=== PATIENT | male | born 2000 | race Hispanic/Latino ===

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

== ENCOUNTER 2022-07-29 21:56 | Emergency (ER) | payer OTHER ==
--- NOTE | 2022-07-29 22:26 | EDPHYS ---
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 Patient states his discomfort is a 1/10 on his left lateral lower leg.. Historical: - Allergies: 22:29 No Known Allergies; os - Immunization history:: Adult Immunizations up to date. - Social history:: Smoking status: Patient denies any tobacco usage or history of. ROS: 22:25 Constitutional: Negative for fever, and chills. Neck: Negative for injury, pain, and ms3 swelling, Cardiovascular: Negative for chest pain, and palpitations. Respiratory: Negative for shortness of breath, cough, wheezing, and pleuritic chest pain, Abdomen/GI: Negative for abdominal pain, nausea, vomiting, diarrhea, and constipation. 22:25 Skin: Positive for Dog bite. 22:25 All other systems are negative. Exam: 22:25 Constitutional: This is a well developed, well nourished patient who is awake, alert, ms3 and in no acute distress. Head/Face: Normocephalic, atraumatic. Chest/axilla: Normal chest wall appearance and motion. Nontender with no deformity. Cardiovascular: Regular rate and rhythm with a normal S1 and S2. No gallops, murmurs, or rubs. Normal PMI, no JVD. No pulse deficits. Respiratory: Lungs have equal breath sounds bilaterally, clear to auscultation and percussion. No rales, rhonchi or wheezes noted. No increased work of breathing, no retractions or nasal flaring. Abdomen/GI: Soft, non-tender, with normal bowel sounds. No distension or tympany. No guarding or rebound. No evidence of tenderness throughout. 22:25 Skin: injury, abrasion(s), very small abrasion noted, of the Left lateral lower leg. Vital Signs: 22:25 BP 97 / 62; Pulse 84; Resp 16; Temp 98.2; Pulse Ox 98% on R/A; Weight 69.4 kg; os MDM: 22:24 Patient medically screened. ms3 22:25 Data reviewed: vital signs, nurses notes, and as a result, I will discharge patient. I ms3 considered the following discharge prescriptions or medication management in the emergency department Patient given prescription for Augmentin. Counseling: I had a detailed discussion with the patient and/or guardian regarding: the historical points, exam findings, and any diagnostic results supporting the discharge/admit diagnosis, the need for outpatient follow up, to return to the emergency department if symptoms worsen or persist or if there are any questions or concerns that arise at home. Special discussion: I discussed with the patient/guardian in detail that at this point there is no indication for admission to the hospital. It is understood, however, that if the symptoms persist or worsen the patient needs to return immediately for re-evaluation. Administered Medications: No medications were administered Disposition Summary: 07/29/22 22:25 Discharge Ordered Location: Home ms3 Condition: Stable ms3 Diagnosis - Bitten by dog ms3 Followup: ms3 - With: Sean Jacskon MD - When: 2 - 3 days - Reason: Recheck today's complaints Discharge Instructions: - Discharge Summary Sheet ms3 - Animal Bite, Adult, [id number] ms3 Forms: - Medication Reconciliation Form ms3 - Thank You Letter ms3 - Antibiotic Education ms3 - Prescription Opioid Use ms3 Prescriptions: - Augmentin 875-125 mg Oral Tablet - take 1 tablet by ORAL route every 12 hours for 6 days; 20 tablet; Refills: 0, ms3 Product Selection Permitted Signatures: Crow Cunha DO DO ms3 Marlen Fay, RN RN os Corrections: (The following items were deleted from the chart) 22:29 22:29 PMHx: SVT; os os 22:29 22:29 PMHx: WPW; os os
--- NOTE | 2022-07-29 22:38 | ER ---
Nurse's Notes [facility] Name: Simon Kee Age: 22 yrs Sex: Male : 2000 Arrival Date: 07/29/2022 Time: 21:56 Bed IW2 Private MD: Diagnosis: Bitten by dog Presentation: 07/29 22:25 Chief complaint: Patient states: I got scratched by a lap dog earlier around 2049. os Coronavirus screen: Vaccine status: Patient reports receiving the 2nd dose of the covid vaccine. 1 year ago. Ebola Screen: Patient negative for fever greater than or equal to 101.5 degrees Fahrenheit, and additional compatible Ebola Virus Disease symptoms. Initial Sepsis Screen: Does the patient meet any 2 criteria? No. Patient's initial sepsis screen is negative. Does the patient have a suspected source of infection? No. Patient's initial sepsis screen is negative. Risk Assessment: Do you want to hurt yourself or someone else? Patient reports no desire to harm self or others. Onset of symptoms was July 29, 2022. 22:25 Method Of Arrival: Ambulatory os 22:25 Acuity: CARLOS ENRIQUE 5 os Triage Assessment: 22:34 Bite description: bite sustained to back of left leg is superficial, by a dog, animal os information: vaccination(s) is current. General: Appears in no apparent distress. Behavior is calm, cooperative, appropriate for age. Pain: Denies pain. Historical: - Allergies: 22:29 No Known Allergies; os - Immunization history:: Adult Immunizations up to date. - Social history:: Smoking status: Patient denies any tobacco usage or history of. Screenin:35 [facility] ED Fall Risk Assessment (Adult) History of falling in the last 3 months, os including since admission No falls in past 3 months (0 pts). Abuse screen: Denies threats or abuse. Nutritional screening: No deficits noted. Tuberculosis screening: No symptoms or risk factors identified. Assessment: 22:36 Derm: Skin is intact, Skin is. os Vital Signs: 22:25 BP 97 / 62; Pulse 84; Resp 16; Temp 98.2; Pulse Ox 98% on R/A; Weight 69.4 kg; os ED Course: 21:57 Patient arrived in ED. jj6 22:07 Crow Cunha DO is Attending Physician. ms3 22:25 Sean Jackson MD is Referral Physician. ms3 22:29 Triage completed. os 22:35 Arm band placed on. os 22:35 No provider procedures requiring assistance completed. os 22:36 Patient has correct armband on for positive identification. os 22:36 Patient did not have IV access during this emergency room visit. os Administered Medications: No medications were administered Medication: 22:36 VIS not applicable for this client. os Outcome: 22:25 Discharge ordered by . ms3 22:36 Discharged to home ambulatory. os 22:36 Condition: good 22:36 Condition: good 22:36 Discharge instructions given to patient, family, Instructed on discharge instructions, follow up and referral plans. medication usage, Demonstrated understanding of instructions, follow-up care, medications, Prescriptions given X 1. 22:37 Patient left the ED. os Signatures: Crow Cunha, DO ms3 LeathaJaimie jj6 Marlen Fay, RN RN os Corrections: (The following items were deleted from the chart) 22:29 22:29 PMHx: SVT; os os 22:29 22:29 PMHx: WPW; os os
[2022-07-29 22:45] VITALS: BP 97/62; TEMP 98.2; O2SAT 98
== END 2022-07-29 22:37 | disposition home or self-care (01) ==
LOC: ER 21:56
DX: S80.812A Abrasion, left lower leg, initial encounter (principal); W54.0XXA Bitten by dog, initial encounter
CPT/HCPCS: 99283

== ENCOUNTER 2023-07-16 22:02 | Emergency (ER) | payer OTHER ==
[2023-07-16] MEDS ORDERED: TDAP (DIPHTH,PERTUSS(ACELL),TET VAC) 0.5 ML VIAL IMVAC ONE (22:49)
[2023-07-16] MEDS ORDERED: AMOX/K CLAV 875 MG TAB ONE (22:49)
--- NOTE | 2023-07-16 23:21 | ER ---
Nurse's Notes [facility] Name: Simon Kee Age: 23 yrs Sex: Male : 2000 Arrival Date: 07/16/2023 Time: 22:02 Bed Treatment Private MD: Diagnosis: Bitten by dog Presentation: 07/15 22:15 Chief complaint: Patient states: bit on left hand by own dog. pain to last two fingers lg3 on left hand. [employer] notified at time of triage. Coronavirus screen: Client denies travel out of the [place] in the last 14 days. At this time, the client does not indicate any symptoms associated with coronavirus-19. Ebola Screen: No symptoms or risks identified at this time. Initial Sepsis Screen: Does the patient meet any 2 criteria? No. Patient's initial sepsis screen is negative. Does the patient have a suspected source of infection? No. Patient's initial sepsis screen is negative. Risk Assessment: Do you want to hurt yourself or someone else? Patient reports no desire to harm self or others. Onset of symptoms was July 16, 2023. 22:15 Method Of Arrival: Ambulatory lg3 22:15 Acuity: CARLOS ENRIQUE 4 lg3 Triage Assessment: 22:19 Bite description: bite sustained to left hand by a dog, animal information: lg3 vaccination(s) is current. General: Appears in no apparent distress. comfortable, Behavior is calm, cooperative. Pain: Complains of pain in left hand. EENT: No deficits noted. No signs and/or symptoms were reported regarding the EENT system. Neuro: No deficits noted. [place] Agitation-Sedation Scale (RASS): 0 - Alert and Calm Level of Consciousness is awake, alert, obeys commands, Oriented to person, place, time, situation. Cardiovascular: No deficits noted. Denies chest pain, shortness of breath, Capillary refill < 3 seconds Clubbing of nail beds is absent JVD is absent Patient's skin is warm and dry. Respiratory: No deficits noted. Airway is patent Respiratory effort is even, unlabored, Respiratory pattern is regular, symmetrical. GI: No deficits noted. No signs and/or symptoms were reported involving the gastrointestinal system. : No deficits noted. No signs and/or symptoms were reported regarding the genitourinary system. Derm: Skin is intact, is healthy with good turgor, Skin is dry, Skin is normal, Skin temperature is warm Wound noted left hand. Musculoskeletal: No deficits noted. No signs and/or symptoms reported regarding the musculoskeletal system. Circulation, motion, and sensation intact. Range of motion: intact in all extremities. Historical: - Allergies: 22:19 No Known Allergies; lg3 - Home Meds: 22:19 Fluoxetine Oral [Active]; Vyvanse oral [Active]; Trazodone Oral [Active]; lg3 - PMHx: 22:19 Anxiety; Depressive disorder; ADHD; lg3 - PSHx: 22:19 cardiac ablasian; lg3 - Immunization history:: Adult Immunizations up to date, Last tetanus immunization: < 5 years ago. - Infectious Disease History:: Denies. - Social history:: Smoking status: Patient denies any tobacco usage or history of. Patient uses alcohol, only on a social basis. Patient/guardian denies using street drugs. Screenin:23 [facility] ED Fall Risk Assessment (Adult) History of falling in the last 3 months, lg3 including since admission No falls in past 3 months (0 pts) Confusion or Disorientation No (0 pts) Intoxicated or Sedated No (0 pts) Impaired Gait No (0 pts) Mobility Assist Device Used No (0 pt) Altered Elimination No (0 pt) Score/Fall Risk Level 0 - 2 = Low Risk Oriented to surroundings, Maintained a safe environment, Educated pt \T\ family on fall prevention, incl call for assistance when getting out of bed, Assessed \T\ reinforced patient's understanding of fall precautions. Abuse screen: Denies threats or abuse. Denies injuries from another. Nutritional screening: No deficits noted. Tuberculosis screening: No symptoms or risk factors identified. Assessment: 22:23 General: see triage assessment. lg3 Vital Signs: 22:15 BP 125 / 69; Pulse 83; Resp 17 S; Temp 98.1(TE); Pulse Ox 100% on R/A; Weight 77.11 kg lg3 (R); Height 5 ft. 10 in. (R); 22:15 Body Mass Index 24.39 (77.11 kg, 177.8 cm) lg3 ED Course: 22:11 Patient arrived in ED. jj6 22:11 Lizeth Hilario [facility]-C [facility]. kb 22:11 Dominguez Wyatt MD is Attending Physician. kb 22:18 Police notified at 22:18 Of dog bite. ty 22:19 Triage completed. lg3 22:19 Arm band placed on right wrist. lg3 22:23 Patient has correct armband on for positive identification. lg3 22:43 Marleny Brantley, RN is Primary Nurse. cm10 22:44 Hand Left 3 View XRAY In Process Unspecified. EDMS 23:06 Wound care: to Dog bite located on palmar aspect of middle phalanx of left little cm10 finger and palmar aspect of proximal phalanx of left middle finger and left hand was cleaned with Hibiclens, Patient tolerated well. 23:35 No provider procedures requiring assistance completed. Patient did not have IV access cm10 during this emergency room visit. Wound care: was dressed with Neosporin, Kerlix. 23:36 Provided Education on: Wound care. cm10 Administered Medications: 22:52 Drug: Amoxicillin-Clavulanate PO 875 mg PO once Route: PO; cm10 23:06 Follow up: Response: No adverse reaction cm10 22:52 Drug: Boostrix Tdap IM 0.5 ml IM once; as a single dose Route: IM; Site: left deltoid; cm10 23:06 Follow up: Response: (VIS) Vaccine information sheet provided today. Questions and/or cm10 concerns addressed. VIS edition date: Sep 10, 2020.; No adverse reaction Medication: 22:53 Vaccine Information Statement (VIS) provided today. Questions and/or concerns cm10 addressed. VIS edition date: September 10, 2020. Outcome: 23:20 Discharge ordered by . kb 23:36 Discharged to home ambulatory, with family, cm10 23:36 Condition: good 23:36 Discharge instructions given to patient, Instructed on discharge instructions, follow up and referral plans. medication usage, Demonstrated understanding of instructions, follow-up care, medications, Prescriptions given X 1, 23:36 Patient left the ED. cm10 Signatures: Dispatcher [employer] EDMS Lizeth Hilario, TRUST OPERATIONS ASSISTANT-C TRUST OPERATIONS ASSISTANT-Sofia Salazar RN RN lg3 Jaimie Zhang jj6 Marleny Brantley RN RN cm10 Tito Castillo ty Corrections: (The following items were deleted from the chart) 22:21 22:19 PD Notified ty ty 22:15 Chief complaint: Patient states: bit on left hand by own dog. pain to last two lg3 fingers on left hand lg3
--- NOTE | 2023-07-16 23:21 | EDPHYS ---
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 kb States he was trying to put leash on dog and it bit him. Denies any other injuries. Historical: - Allergies: 22:19 No Known Allergies; lg3 - Home Meds: 22:19 Fluoxetine Oral [Active]; Vyvanse oral [Active]; Trazodone Oral [Active]; lg3 - PMHx: 22:19 Anxiety; Depressive disorder; ADHD; lg3 - PSHx: 22:19 cardiac ablasian; lg3 - Immunization history:: Adult Immunizations up to date, Last tetanus immunization: < 5 years ago. - Infectious Disease History:: Denies. - Social history:: Smoking status: Patient denies any tobacco usage or history of. Patient uses alcohol, only on a social basis. Patient/guardian denies using street drugs. ROS: 22:13 Constitutional: As per HPI kb Exam: 22:42 Constitutional: This is a well developed, well nourished patient who is awake, alert, kb and in no acute distress. Head/Face: Normocephalic, atraumatic. ENT: Moist Mucous membranes Cardiovascular: Regular rate Respiratory: Respirations even and unlabored. No increased work of breathing. Talking in full sentences Neuro: Awake and alert, GCS 15, oriented to person, place, time, and situation. Moves all extremities. Normal gait. 22:42 Musculoskeletal/extremity: Extremities: grossly normal except: noted in the palmar aspect of proximal phalanx of left middle finger: abrasion, decreased ROM, pain, noted in the palmar aspect of middle phalanx of left little finger: abrasion, ROM: limited active range of motion due to pain, Circulation is intact in all extremities. Sensation intact. Vital Signs: 22:15 BP 125 / 69; Pulse 83; Resp 17 S; Temp 98.1(TE); Pulse Ox 100% on R/A; Weight 77.11 kg lg3 (R); Height 5 ft. 10 in. (R); 22:15 Body Mass Index 24.39 (77.11 kg, 177.8 cm) lg3 MDM: 22:11 Patient medically screened. kb 22:42 ED course: [employer] reports #[id number]. kb 22:43 Data reviewed: vital signs, nurses notes. Historians other than the Patient: Parent: gui mother. 23:20 Independent interpretation of the following test(s) in the Emergency Department X-Ray: kb My interpretation is no fracture. Counseling: I had a detailed discussion with the patient and/or guardian regarding the historical points, exam findings, and any diagnostic results supporting the discharge/admit diagnosis, radiology results, the need for outpatient follow up, a family practitioner, to return to the emergency department if symptoms worsen or persist or if there are any questions or concerns that arise at home. 07/15 22:16 Order name: Hand Left 3 View XRAY kb Administered Medications: 22:52 Drug: Amoxicillin-Clavulanate PO 875 mg PO once Route: PO; cm10 23:06 Follow up: Response: No adverse reaction cm10 22:52 Drug: Boostrix Tdap IM 0.5 ml IM once; as a single dose Route: IM; Site: left deltoid; cm10 23:06 Follow up: Response: (VIS) Vaccine information sheet provided today. Questions and/or cm10 concerns addressed. VIS edition date: Sep 10, 2020.; No adverse reaction Disposition: 07/16 03:17 Co-signature as Attending Physician, Dominguez Wyatt MD I agree with the assessment sp4 and plan of care. I reviewed the patient's care provided by the Advanced Practice Provider and agree with the diagnosis and treatment plan. Disposition Summary: 07/16/23 23:20 Discharge Ordered Notes: Location: Home kb Condition: Stable kb Diagnosis - Bitten by dog kb Followup: kb - With: Emergency Department - When: As needed - Reason: Worsening of condition Followup: kb - With: Private Physician - When: 2 - 3 days - Reason: Recheck today's complaints, Continuance of care, Re-evaluation by your physician Discharge Instructions: - Discharge Summary Sheet kb - Animal Bite, Adult, [id number] kb Forms: - Medication Reconciliation Form kb - Antibiotic Education kb - Prescription Opioid Use kb - Patient Portal Instructions kb - Leadership Thank You Letter kb Prescriptions: - Augmentin 875-125 mg Oral Tablet - take 1 tablet ORAL route every 12 hours for 10 days; 20 tablet; Refills: 0, kb Product Selection Permitted Signatures: Dispatcher [employer] EDMS Lizeth Hilario FNP-C FNP-Sofia Salazar, RN RN lg3 Dominguez Wyatt MD MD sp4 Marleny Brantley RN RN cm10 Corrections: (The following items were deleted from the chart) 07/15 22:17 22:17 Hand Left 3 View+RAD.RAD.BRZ ordered. EDNM EDMS
[2023-07-17 00:35] VITALS: BP 125/69; TEMP 98.1; O2SAT 100
--- NOTE | 2023-07-17 13:21 | RAD REPORT ---
EXAM DESCRIPTION: RAD - Hand Left 3 View - 07/16/2023 10:42 pm CLINICAL HISTORY: The patient is 23 years old and is Male; PAIN TECHNIQUE: Frontal, lateral and oblique views of the left hand. COMPARISON: No relevant prior studies available. FINDINGS: BONES/JOINTS: Unremarkable. No acute fracture. No dislocation. SOFT TISSUES: Unremarkable. No radiopaque foreign body. IMPRESSION: Normal left hand radiographs. Electronically signed by: Emi Wilburn MD 07/16/2023 11:20 PM CDT RP Due to temporary technical issues with the PACS/Fluency reporting system, reports are being signed by the in house radiologist without review as a courtesy to ensure prompt reporting. The interpreting r adiologist is fully responsible for the content of the report.
== END 2023-07-16 23:36 | disposition home or self-care (01) ==
LOC: ER 22:02
DX: S60.512A Abrasion of left hand, initial encounter (principal); W54.0XXA Bitten by dog, initial encounter
CPT/HCPCS: 96372; 99284

== ENCOUNTER 2023-08-08 00:52 | Emergency (ER) | payer OTHER ==
[2023-08-08] MEDS ORDERED: THIAMINE 200 MG/2 ML INJ ONE (01:22)
[2023-08-08] MEDS ORDERED: ONDANSETRON 4 MG/2 ML VIAL ONE (01:22)
[2023-08-08] MEDS ORDERED: MULTIVITAMINS 10 ML VIAL (INJ) IV ONE (01:23)
[2023-08-08] MEDS ORDERED: FOLIC ACID 5 MG/ML VIAL ONE (01:23)
[2023-08-08] MEDS ORDERED: NA CHLORIDE 0.9% 2,000 ML ONE (01:24)
[2023-08-08 01:30] LABS: Absolute Eosinophils 0.2 K/uL (0-0.5); Absolute Lymphocytes (CBC) 1.4 K/uL (0.7-4.9); Absolute Monocytes 0.5 K/uL (0.1-1.3); Absolute Neutrophil 3.2 K/uL (1.8-8.0); Basophils % 0.6 % (0-1.3); Eosinophils % 4.5 % (0-4.4); Hematocrit 41.7 % (39.6-49.0); Hemoglobin 13.9 g/dL (13.6-17.9); Lymphocytes % 26.6 % (15.3-44.8); MCH 30.7 pg (27.0-35.0); MCHC 33.4 g/dL (32.0-36.0); MCV 91.9 fL (80-100); MPV 9.4 fL (7.6-11.3); Monocytes % 9.4 % (3.3-12.3); Neutrophils % 58.9 % (41.7-73.7); Nucleated Red Blood Cells % 0.1 % (0-0); Platelets 186 thou/uL (152-406); RBC Red Blood Cell Count 4.54 M/uL (4.33-5.43); Red Cell Distribution Width 13.9 % (12.1-15.2)
[2023-08-08 01:34] LABS: PT Prothrombin Time 12.2 SECONDS (9.4-12.5); Protime INR 1.11
[2023-08-08 02:14] LABS: ALT/SGPT 39 U/L (16-61); AST/SGOT 28 U/L (15-37); Albumin 3.8 g/dL (3.4-5.0); Albumin/Globulin Ratio 1.2 (1.1-1.8); Alkaline Phosphatase 85 U/L (45-117); Anion Gap 8.4 mEq/L (5.0-15.0); BUN Blood Urea Nitrogen 20 mg/dL (7-18); Bicarbonate 28 mEq/L (21-32); Bilirubin Total 0.3 mg/dL (0.2-1.0); Globulin 3.2 g/dL (2.3-3.5); Glomerular Filtration Rate 124 ml/min (=/>90); Glucose Level 79 mg/dL (74-106); Potassium 3.4 mEq/L (3.5-5.1); Sodium Level 141 mEq/L (136-145)
[2023-08-08 02:16] LABS: Bilirubin Direct < 0.2 mg/dL (0-0.2); Bilirubin Indirect, Calculated 0.1 mg/dL (0.2-0.8)
[2023-08-08 02:18] LABS: Specific Gravity 1.006 (1.005-1.030); Sqamous Epithelial None Seen /HPF (None Seen); Urine Bacteria None Seen /HPF (<20); Urine Bilirubin NEGATIVE (Negative); Urine Blood Negative (Negative); Urine Clarity Clear (Clear); Urine Color Colorless (Yellow); Urine Culture Reflex Order NOT NEEDED; Urine Glucose NEGATIVE (Negative); Urine Ketones NEGATIVE (Negative); Urine Microscopic Reflex YN ORDER UMIC; Urine Nitrite NEGATIVE (Negative); Urine Protein NEGATIVE (Negative); Urine RBC None Seen /HPF (None Seen); Urine Urobilinogen Normal (Normal); Urine WBC <5 /HPF (<5)
[2023-08-08 02:46] LABS: Barbiturates NEGATIVE (NEGATIVE); Benzodiazepines NEGATIVE (NEGATIVE); Cocaine NEGATIVE (NEGATIVE); METHAMPHETAM POSITIVE (NEGATIVE); Methadone NEGATIVE (NEGATIVE); Opiates NEGATIVE (NEGATIVE); Phencyclidine NEGATIVE (NEGATIVE); THC Cannibis NEGATIVE (NEGATIVE)
--- NOTE | 2023-08-08 03:17 | ER ---
Nurse's Notes [facility] Name: Simon Kee Age: 23 yrs Sex: Male : 2000 Arrival Date: 08/08/2023 Time: 00:52 Bed 4 Private MD: Diagnosis: Alcohol use, unspecified with intoxication Presentation: 08/07 00:52 Chief complaint: EMS states: mother and father called us because they think their son bm8 may have alcohol poisining. Coronavirus screen: Vaccine status: Patient reports receiving the 2nd dose of the covid vaccine. Ebola Screen: Patient negative for fever greater than or equal to 101.5 degrees Fahrenheit, and additional compatible Ebola Virus Disease symptoms Patient denies exposure to infectious person. Patient denies travel to an Ebola-affected area in the 21 days before illness onset. No symptoms or risks identified at this time. Initial Sepsis Screen: Does the patient meet any 2 criteria? No. Patient's initial sepsis screen is negative. Does the patient have a suspected source of infection? No. Patient's initial sepsis screen is negative. Risk Assessment: Do you want to hurt yourself or someone else? Patient reports no desire to harm self or others. Onset of symptoms is unknown. 00:52 Method Of Arrival: EMS: [facility] bm8 00:52 Acuity: CARLOS ENRIQUE 3 bm8 01:10 Care prior to arrival: Medication(s) given: Normal saline infusion, 1000 mL, IV bm8 initiated. 18 GA, in the right antecubital area. Triage Assessment: 01:10 General: Appears distressed, comfortable, well groomed, Behavior is cooperative, bm8 crying. Pain: Denies pain. EENT: No deficits noted. No signs and/or symptoms were reported regarding the EENT system. Neuro: No deficits noted. Level of Consciousness is awake, alert, obeys commands, Oriented to person, place, time, situation, Appropriate for age Public Health Registrar are equal bilaterally Moves all extremities. Full function. Cardiovascular: Denies chest pain, Capillary refill < 3 seconds Patient's skin is warm and dry. Respiratory: Airway is patent Respiratory effort is even, unlabored, Respiratory pattern is regular, symmetrical, Breath sounds are clear bilaterally. GI: No signs and/or symptoms were reported involving the gastrointestinal system. : No signs and/or symptoms were reported regarding the genitourinary system. Derm: No signs and/or symptoms reported regarding the dermatologic system. Musculoskeletal: No signs and/or symptoms reported regarding the musculoskeletal system. Historical: - Allergies: :09 No Known Allergies; bm8 - Home Meds: 01:09 Fluoxetine Oral [Active]; Trazodone Oral [Active]; Vyvanse oral [Active]; bm8 - PMHx: 01:10 adhd; Anxiety; depressive disorder; bm8 - PSHx: 01:09 cardiac ablasian; bm8 - Immunization history:: Adult Immunizations up to date. - Infectious Disease History:: Denies. - Social history:: Smoking status: Patient denies any tobacco usage or history of. Patient uses alcohol, but reports only rare drinking. patient/guardian reports recent binge of alcohol consumption. Patient/guardian denies using street drugs, IV drugs. - Family history:: not pertinent. Screenin:14 [facility] ED Fall Risk Assessment (Adult) History of falling in the last 3 months, bm8 including since admission No falls in past 3 months (0 pts) Confusion or Disorientation No (0 pts) Intoxicated or Sedated No (0 pts) Impaired Gait No (0 pts) Mobility Assist Device Used No (0 pt) Altered Elimination No (0 pt) Score/Fall Risk Level 0 - 2 = Low Risk Oriented to surroundings, Maintained a safe environment, Educated pt \T\ family on fall prevention, incl call for assistance when getting out of bed, Assessed \T\ reinforced patient's understanding of fall precautions. Abuse screen: Denies threats or abuse. Nutritional screening: No deficits noted. Tuberculosis screening: No symptoms or risk factors identified. Assessment: :14 Reassessment: see triage note. bm8 01:57 Reassessment: Patient appears in no apparent distress at this time. Patient and/or bm8 family updated on plan of care and expected duration. Pain level reassessed. Patient is alert, oriented x 3, equal unlabored respirations, skin warm/dry/pink. pt is resting with eyes closed breathing is even unlabored with mother at bedside. Pt is easily rousable, still denies pain. No N/V since arrival. General: Appears in no apparent distress. comfortable, Behavior is calm, cooperative, appropriate for age. Pain: Denies pain. Neuro: No deficits noted. Level of Consciousness is awake, alert, obeys commands, Oriented to person, place, time, situation, Appropriate for age. Cardiovascular: Denies chest pain, Capillary refill < 3 seconds Patient's skin is warm and dry. Respiratory: Airway is patent Trachea midline Respiratory effort is even, unlabored, Respiratory pattern is regular, symmetrical. GI: Patient currently denies nausea, vomiting. : No signs and/or symptoms were reported regarding the genitourinary system. EENT: No signs and/or symptoms were reported regarding the EENT system. Derm: No signs and/or symptoms reported regarding the dermatologic system. Musculoskeletal: No signs and/or symptoms reported regarding the musculoskeletal system. 03:33 Reassessment: Patient appears in no apparent distress at this time. Patient and/or bm8 family updated on plan of care and expected duration. Pain level reassessed. Patient is alert, oriented x 3, equal unlabored respirations, skin warm/dry/pink. pt is eating and ready to go home with mother Patient states feeling better. Patient states symptoms have improved. Vital Signs: 00:52 BP 116 / 70; Pulse 81; Resp 17; Temp 97.7; Pulse Ox 99% on R/A; Weight 72.57 kg; Height bm8 5 ft. 10 in. ; Pain 0/10; 01:57 BP 119 / 74; Pulse 98; Resp 17; Temp 97.7; Pulse Ox 98% on R/A; Pain 0/10; bm8 03:33 BP 115 / 72; Pulse 87; Resp 17; Temp 98; Pulse Ox 100% ; Pain 0/10; bm8 00:52 Body Mass Index 22.96 (72.57 kg, 177.8 cm) bm8 00:52 Pain Scale: Adult bm8 01:57 Pain Scale: Adult bm8 03:33 Pain Scale: Adult bm8 [place] Coma Score: 01:14 Eye Response: spontaneous(4). Motor Response: obeys commands(6). Verbal Response: bm8 oriented(5). Total: 15. 01:57 Eye Response: spontaneous(4). Motor Response: obeys commands(6). Verbal Response: bm8 oriented(5). Total: 15. 03:33 Eye Response: spontaneous(4). Motor Response: obeys commands(6). Verbal Response: bm8 oriented(5). Total: 15. 21:55 Eye Response: spontaneous(4). Motor Response: localizes pain(5). Verbal Response: sp4 incomprehensible(2). Total: 11. ED Course: 01:06 Patient arrived in ED. bm8 01:07 Pedrito Kumar, RN is Primary Nurse. bm8 01:09 Triage completed. bm8 01:10 Dominguez Wyatt MD is Attending Physician. sp4 01:10 Arm band placed on right wrist. bm8 01:14 Patient has correct armband on for positive identification. Bed in low position. Call bm8 light in reach. Side rails up X2. Client placed on continuous cardiac and pulse oximetry monitoring. NIBP monitoring applied. case monitor on. Pulse ox on. NIBP on. Door closed. Noise minimized. Warm blanket given. Verbal reassurance given. 01:14 No provider procedures requiring assistance completed. Maintain EMS IV. Dressing bm8 intact. Good blood return noted. Site clean \T\ dry. Gauge \T\ site: 18g rac. 03:33 Provided Education on: post er care. bm8 03:33 IV discontinued, intact, bleeding controlled, No redness/swelling at site. Pressure bm8 dressing applied. Administered Medications: 01:34 Drug: Banana Bag - (Multivitamin IV 1 amp, NS 0.9% IV 1000 ml, Thiamine IV 100 mg, bm8 foLIC Acid IVPB 1 mg) IV at calculated rate once Route: IV; Rate: calculated rate; Site: right antecubital; 03:30 Follow up: Response: No adverse reaction; IV Status: Completed infusion; IV Intake: bm8 1000ml 01:34 Drug: NS 0.9% IV 1000 ml IV at 1 bolus Per protocol; 1000 mL bolus Route: IV; Rate: 1 bm8 bolus; Site: right antecubital; 03:29 Follow up: Response: No adverse reaction; IV Status: Completed infusion; IV Intake: bm8 1000ml 01:34 Drug: Ondansetron IVP 4 mg IVP once; over 2 minutes Route: IVP; Site: right antecubital;bm8 03:29 Follow up: Response: No adverse reaction bm8 Medication: 01:14 VIS not applicable for this client. bm8 Intake: 03:29 IV: 1000ml; Total: 1000ml. bm8 03:30 IV: 1000ml; Total: 2000ml. bm8 Outcome: 03:16 Discharge ordered by . spBradley 03:33 Discharged to home ambulatory, bm8 03:33 Condition: stable 03:33 Discharge instructions given to patient, family, Instructed on discharge instructions, follow up and referral plans. medication usage, safety practices, Demonstrated understanding of instructions, follow-up care, medications, 03:35 Patient left the ED. bm8 Signatures: Dominguez Wyatt MD MD sp4 Pedrito Kumar, RN RN bm8
--- NOTE | 2023-08-08 03:17 | EDPHYS ---
Physician Documentation [facility] Name: Simon Kee Age: 23 yrs Sex: Male : 2000 Arrival Date: 08/08/2023 Time: 00:52 Bed 4 Private MD: ED Physician Dominguez Wyatt HPI: 08/07 01:10 This 23 yrs old Male presents to ER via EMS with complaints of Intoxication . sp4 21:55 3-year-old male presents with acute alcohol intoxication. Patient reportedly sp4 takes amphetamine Vyvanse for ADHD. Was apparently at the bar earlier had a significant ingestion of alcohol. On arrival home patient was feeling unwell . His mother became worried and called EMS and patient was brought here by EMS .. Historical: - Allergies: 01:09 No Known Allergies; bm8 - Home Meds: 01:09 Fluoxetine Oral [Active]; Trazodone Oral [Active]; Vyvanse oral [Active]; bm8 - PMHx: 01:10 adhd; Anxiety; depressive disorder; bm8 - PSHx: 01:09 cardiac ablasian; bm8 - Immunization history:: Adult Immunizations up to date. - Infectious Disease History:: Denies. - Social history:: Smoking status: Patient denies any tobacco usage or history of. Patient uses alcohol, but reports only rare drinking. patient/guardian reports recent binge of alcohol consumption. Patient/guardian denies using street drugs, IV drugs. - Family history:: not pertinent. ROS: 21:55 Constitutional: For intoxication, other review of system is not available. sp4 21:55 All other systems are negative, Exam: 07:16 ECG was reviewed by the Attending Physician. EKG -EKG at 0 124 normal sinus rhythm rate sp4 83. 21:55 Constitutional: This is a well developed, well nourished patient who is awake, patient sp4 is heavily intoxicated, nonverbal at this time, poorly cooperative, not able to speak or provide HPI Head/Face: Normocephalic, atraumatic. Eyes: Pupils equal round and reactive to light, extra-ocular motions intact. Lids and lashes normal. Conjunctiva and sclera are not injected. Cornea within normal limits. Periorbital areas with no swelling, redness, or edema. ENT: Nares patent. No nasal discharge, no septal abnormalities noted. Tympanic membranes are normal and external auditory canals are clear. Oropharynx with no redness, swelling, or masses, exudates, or evidence of obstruction, uvula midline. Mucous membranes moist. Neck: Trachea midline, no thyromegaly or masses palpated, and no cervical lymphadenopathy. Supple, full range of motion without nuchal rigidity, or vertebral point tenderness. Chest/axilla: Normal chest wall appearance and motion. Nontender with no deformity. No lesions are appreciated. Cardiovascular: Regular rate and rhythm with a normal S1 and S2. No gallops, murmurs, or rubs. Normal PMI, no JVD. No pulse deficits. Respiratory: Lungs have equal breath sounds bilaterally, clear to auscultation and percussion. No rales, rhonchi or wheezes noted. No increased work of breathing, no retractions or nasal flaring. Abdomen/GI: Soft, with normal bowel sounds. No distension or tympany. No guarding or rebound. No evidence of tenderness throughout. Back: No spinal tenderness. No costovertebral tenderness. Skin: Warm, dry with normal turgor. Normal color with no rashes, no lesions, and no evidence of cellulitis. MS/ Extremity: Pulses equal, no cyanosis. Neurovascular intact. Full, normal range of motion. Neuro: Awake , intoxication limits exam, patient is moving all extremities, not able to speak at this time, no signs of lateralizing deficits Vital Signs: 00:52 BP 116 / 70; Pulse 81; Resp 17; Temp 97.7; Pulse Ox 99% on R/A; Weight 72.57 kg; Height bm8 5 ft. 10 in. ; Pain 0/10; 01:57 BP 119 / 74; Pulse 98; Resp 17; Temp 97.7; Pulse Ox 98% on R/A; Pain 0/10; bm8 03:33 BP 115 / 72; Pulse 87; Resp 17; Temp 98; Pulse Ox 100% ; Pain 0/10; bm8 00:52 Body Mass Index 22.96 (72.57 kg, 177.8 cm) bm8 00:52 Pain Scale: Adult bm8 01:57 Pain Scale: Adult bm8 03:33 Pain Scale: Adult bm8 Ellen Coma Score: 01:14 Eye Response: spontaneous(4). Motor Response: obeys commands(6). Verbal Response: bm8 oriented(5). Total: 15. 01:57 Eye Response: spontaneous(4). Motor Response: obeys commands(6). Verbal Response: bm8 oriented(5). Total: 15. 03:33 Eye Response: spontaneous(4). Motor Response: obeys commands(6). Verbal Response: bm8 oriented(5). Total: 15. 21:55 Eye Response: spontaneous(4). Motor Response: localizes pain(5). Verbal Response: sp4 incomprehensible(2). Total: 11. MDM: 01:12 Patient medically screened. sp4 21:55 Differential Diagnosis altered mental status, sepsis, flu, Intoxication. Data reviewed: sp4 vital signs, nurses notes, EMS record, old medical records, lab test result(s), electrolytes, hepatic panel, urine drug screen. Consideration of Admission/Observation Escalation of care including admission/observation considered. 22:00 ED course: Has sobered up throughout the ER stay. Patient is stable for discharge home sp4 at this time. 08/07 01:11 Order name: Acetaminophen; Complete Time: 03: sp4 08/07 01:11 Order name: Basic Metabolic Panel; Complete Time: 03: 4 08/07 01:11 Order name: CBC with Diff; Complete Time: 03: sp4 08/07 01:11 Order name: ETOH Level; Complete Time: 03: sp4 08/07 01:11 Order name: Hepatic Function; Complete Time: 03: sp4 08/07 01:11 Order name: PT-INR; Complete Time: 03: sp4 08/07 01:11 Order name: Ptt, Activated; Complete Time: 03: sp4 08/07 01:11 Order name: Salicylate; Complete Time: 03: 4 08/07 01:11 Order name: Urinalysis w/ reflexes; Complete Time: 03: sp4 08/07 01:11 Order name: Urine Drug Screen; Complete Time: 03: sp4 08/07 01:11 Order name: EKG; Complete Time: 01:11 sp4 08/07 01:11 Order name: EKG - Nurse/Tech; Complete Time: 01:30 sp4 08/07 01:11 Order name: IV Saline Lock; Complete Time: :30 sp4 08/07 01:11 Order name: Labs collected and sent; Complete Time: sp4 08/07 01:11 Order name: Suicide Screening (Franki); Complete Time: :35 sp4 EC:16 Rate is 83 beats/min. Rhythm is regular, Normal Sinus Rhythm. QRS Joshua is Normal. MN sp4 interval is normal. QRS interval is normal. QT interval is normal. No Q waves. T waves are Normal. No ST changes noted. Clinical impression: Normal ECG. Interpreted by me. Reviewed by me. Administered Medications: 01:34 Drug: Banana Bag - (Multivitamin IV 1 amp, NS 0.9% IV 1000 ml, Thiamine IV 100 mg, bm8 foLIC Acid IVPB 1 mg) IV at calculated rate once Route: IV; Rate: calculated rate; Site: right antecubital; 03:30 Follow up: Response: No adverse reaction; IV Status: Completed infusion; IV Intake: bm8 1000ml 01:34 Drug: NS 0.9% IV 1000 ml IV at 1 bolus Per protocol; 1000 mL bolus Route: IV; Rate: 1 bm8 bolus; Site: right antecubital; 03:29 Follow up: Response: No adverse reaction; IV Status: Completed infusion; IV Intake: bm8 1000ml 01:34 Drug: Ondansetron IVP 4 mg IVP once; over 2 minutes Route: IVP; Site: right antecubital;bm8 03:29 Follow up: Response: No adverse reaction bm8 Disposition Summary: 08/08/23 03:16 Discharge Ordered Notes: Location: Home sp4 Problem: new sp4 Symptoms: have improved sp4 Condition: Stable sp4 Diagnosis - Alcohol use, unspecified with intoxication sp4 Followup: sp4 - With: Private Physician - When: As needed - Reason: Recheck today's complaints Discharge Instructions: - Discharge Summary Sheet sp4 - Alcohol Intoxication sp4 Signatures: Dispatcher [employer] Dominguez Marsh MD MD sp4 Pedrito Kumar RN RN bm8
[2023-08-08 03:57] VITALS: BP 115/72; TEMP 98; O2SAT 100
--- NOTE | 2023-08-09 16:07 | EKG ---
Test Date: 2023-08-08 Test Time: 01:24:36 Php Software Engineer: MOSHE MEASUREMENT RESULTS: Intervals: Rate: 83 CO: 170 QRSD: 100 QT: 396 QTc: 465 Vernon: P: 67 CO: 170 QRS: 84 T: 62 INTERPRETIVE STATEMENTS: Normal sinus rhythm Normal ECG Compared to ECG 10/07/2015 22:47:06 No significant changes Electronically Signed On 08-09-23 16:06:49 CDT by Ricci Cao
== END 2023-08-08 03:35 | disposition home or self-care (01) ==
LOC: ER 00:52
DX: F10.929 Alcohol use, unspecified with intoxication, unspecified (principal)
CPT/HCPCS: 96365; 93005; 85025; 81001; 80048; 36415; 85610; 80076; 85730; 80307; 96375; 99285; 96366; 80143; 80179; 82077; J3411; J2405; J7030